=== PATIENT | male | born 1955 | race Caucasian/White ===

== ENCOUNTER 2017-08-15 10:53 | Observation (INO) ==
[2017-08-15] MEDS ORDERED: Isovue-370 500 ML INFUS..BTL IV ONE ×2 (10:55→13:37)
[2017-08-15] MEDS ORDERED: *HR* HYDROmorphone (PF) 1 MG/ML SYRINGE IVP ONE ×3 (10:57→18:41)
[2017-08-15] MEDS ORDERED: Ondansetron 4 MG/2 ML VIAL IVP ONE (10:57)
[2017-08-15] MEDS ORDERED: 0.9 % Sodium Chloride 1,000 ML IVC ONE (10:57)
--- NOTE | 2017-08-15 11:03 | Emergency Department Note ---
Disposition Clinical Impression: Inadequate pain control Rib fractures Qualifiers: Encounter type: initial encounter Rib fracture type: multiple ribs Fracture type: closed Laterality: right Qualified Code(s): S22.41XA - Multiple fractures of ribs, right side, initial encounter for closed fracture Disposition: Admitted As Inpatient Condition: Fair Time of Disposition: 12:44 Trauma HPI - General Chief Complaint: ED Trauma Stated Complaint: trampled by cattle Time Seen by Provider: 08/15/17 11:05 Source: patient Mode of arrival: wheelchair Limitations: physical limitation (due to pain) Nursing Notes Reviewed: Yes Vital Signs Reviewed: Yes - History of Present Illness HPI Narrative: 62-year-old male who is in the field when a dog that was in the field with him went one way triggered the visual contact with a cow that just calved became very aggressive and the cow chased him and then trampled him he comes in complaining of severe rib and chest pain and is unsure if he has any other injuries but states he was trampled by the bovine hurts to move but he denies any lightheadedness dizziness has a large abrasion to his leg denies any additional complaints Pt Subjective Complaint: other (Trampled) 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 Denies: confusion, cough, diaphoresis, fever, chills, headaches, loss of appetite, nausea, vomiting, seizure, abdominal pain, syncope, weakness, visual disturbances, dizziness, dental pain, epistaxis, back pain - Related Data Home Medications Medication Instructions Recorded Confirmed No Known Home Drugs 08/15/17 08/15/17 Allergies Allergy/AdvReac Type Severity Reaction Status Date / Time No Known Allergies Allergy Verified 08/15/17 10:54 All systems ED: reviewed and negative except as stated. Review of Systems: As Per HPI Constitutional: Denies: fever, chills, weakness Eyes: Denies: eye pain, eye discharge ENT ED: Denies: ear pain, throat pain Cardiovascular: Reports: chest pain, dyspnea on exertion. Denies: palpitations Respiratory: Reports: dyspnea. Denies: wheezes Gastrointestinal: Reports: abdominal pain (little). Denies: nausea, vomiting Genitourinary: Denies: urgency, dysuria, frequency Musculoskeletal: Reports: back pain. Denies: neck pain Integumentary: Denies: rash, nipple discharge Neurological: Denies: headache, weakness Psychiatric: Denies: anxiety, depression Endocrine: Denies: fatigue, heat or cold intolerance Hematological/Lymphatic: Denies: easy bleeding Allergic/Immunologic: Denies: facial swelling Past Medical History - Past Medical History Attestation: Yes The following information was validated with the patient. Source: patient, old records reviewed, nursing notes reviewed Physical Exam - General Limitations: physical limitation General appearance: alert, anxious, in distress - Head Head exam: normocephalic, normal inspection - Expanded Head Exam 1 - dried blood - Eye Eye exam: Present: normal appearance, PERRL, EOMI - ENT ENT exam: normal exam, normal oropharynx, mucous membranes moist, TM's normal bilaterally, normal external ear exam - Neck Neck exam: Present: normal inspection, full ROM, trachea midline. Absent: meningismus, other - Chest Chest inspection: Present: normal inspection, symmetric chest wall rise, tenderness (no bruising or crepitence) - Respiratory Respiratory exam: Present: normal lung sounds bilaterally, prolonged expiratory phase, other (splinting respirations) - Cardiovascular Cardiovascular exam: Present: regular rate, normal rhythm, normal heart sounds - Abdominal Exam Abdominal exam: Present: soft, Non-Tender, normal bowel sounds. Absent: mass, pulsatile mass - Expanded Upper Extremity Exam Shoulder exam: Present: normal inspection, full ROM Arm exam: Present: normal inspection, full ROM Elbow exam: Present: normal inspection, full ROM Forearm/Wrist exam: Present: normal inspection, full ROM Hand exam: Present: normal inspection, full ROM Vascular exam: Normal: capillary refill, radial pulse - Expanded Lower Extremity Exam Hip/Pelvis exam: Present: normal inspection, full ROM Upper leg exam: Present: normal inspection, full ROM 1 - large abrasion Knee exam: Present: normal inspection, full ROM, tenderness, abrasion Lower leg exam: Present: normal inspection, full ROM Ankle exam: Present: normal inspection, full ROM Foot/toe exam: Present: normal inspection, full ROM Neurovascular/Tendon exam: Present: normal capillary refill, normal fine/light touch. Absent: motor deficit, sensory deficit, tendon deficit Gait: observed and limited by pain - Back Exam Back exam: Present: normal inspection, full ROM, CVA tenderness (R), muscle spasm - Neurological Exam Neurological exam: Present: alert, oriented X3, CN II-XII intact - Psychiatric Psychiatric exam: Present: normal affect, normal mood - Skin Skin exam: Present: warm, dry, intact, normal color, other (covered in dirt on legs) Course Course Narrative: Patient was immediately seen and examined patient was given pain medication patient was taken directly to CAT scan where CT of the head chest abdomen and pelvis was done with IV contrast only was placed CAT scan he had multiple rib fractures on the right he did have initial relief with first dose of pain medications we tried giving him some oxycodone IR patient still continued to have pain though he was having no trouble with respirations or with movement as long as he was just very subtle in the bed with the try to get up and do any physical activity he would have increasing pain to the point where it almost incapacitating he was given a double dose of fentanyl at this time I spoke with Dr. Sullivan for admission patient was then transferred to [facility] for monitoring and pain control management patient was resting time of transfer to [facility] Vital Signs Temperature 97 F L 08/15/17 11:05 Pulse Rate 64 08/15/17 11:05 Respiratory Rate 18 08/15/17 11:05 Blood Pressure 129/75 08/15/17 11:05 O2 Sat by Pulse Oximetry 100 08/15/17 11:05 Temperature 98.3 F 08/16/17 14:07 Pulse Rate 79 08/16/17 14:07 Respiratory Rate 18 08/16/17 14:07 Blood Pressure 156/83 08/16/17 14:07 O2 Sat by Pulse Oximetry 96 08/16/17 14:07 Oxygen Delivery Oxygen Delivery Room Air Trauma - Differential Diagnosis Blunt Trauma to: Likely: Head/Face, Chest/Trunk, Abdomen/Pelvis - Medical Records Medical records reviewed: Yes I reviewed the patient's medical records. - Lab Data Lab results reviewed: Yes I reviewed the patient's lab results. Result diagrams: 08/16/17 06:00 08/16/17 06:00 Lab Results 08/15/17 08/15/17 08/15/17 Range/Units 11:00 11:00 11:00 WBC 10.0 (4.3-11.1) K/mcL RBC 5.06 (4.19-5.50) M/mcL Hgb 16.0 (12.9-16.9) g/dL Hct 45.0 (37.5-50.1) % MCV 88.9 (83.0-100.0) fL MCH 31.6 (28.0-33.3) pg MCHC 35.6 H (31.6-35.5) g/dL RDW 11.8 (11.5-14.5) % Plt Count 226 (140-400) K/mcL MPV 10.4 (9.4-12.4) fL Immature Gran % 0.6 (0-4) % Seg Neutrophils % 40.3 % Lymphocytes % 49.0 % Monocytes % 7.3 % Eosinophils % 2.3 % Basophils % 0.5 % Neutrophils # 4.1 (1.6-8.9) K/mcL Lymphocytes # 4.9 H (0.6-4.6) K/mcL Monocytes # 0.7 (0.0-1.3) K/mcL Eosinophils # 0.2 (0.0-0.6) K/mcL Basophils # 0.1 (0.0-0.2) K/mcL PT 10.7 (9.4-12.1) Seconds INR 1.0 APTT 25.0 L (26.0-36.0) Seconds Sodium 138 (136-145) mEq/L Potassium 3.7 (3.5-5.1) mEq/L Chloride 104 (98-107) mEq/L Carbon Dioxide 26 (23-29) mEq/L BUN 15 (8-23) mg/dL Creatinine 1.17 (0.70-1.30) mg/dL Est GFR ( Amer) > 60 (> 60) Est GFR (Non-Af Amer) > 60 (> 60) BUN/Creatinine Ratio 13 (6-26) Glucose 146 H (70-105) mg/dL Calculated Osmolality 289 (280-300) Calcium 8.9 (8.6-10.3) mg/dL Total Bilirubin 0.8 (0.3-1.0) mg/dL AST 149 H (13-39) Units/L ALT 149 H (7-52) Units/L Alkaline Phosphatase 73 (34-104) Units/L Serum Total Protein 6.9 (6.4-8.9) g/dL Albumin 4.0 (3.5-5.7) g/dL Globulin 2.9 (2.4-3.5) g/dL Albumin/Globulin Ratio 1.4 (1.1-2.2) - Radiology Data Radiology results reviewed: Yes I reviewed the patient's radiology results. Head chest or cranial bleed tumor mass or lesions noted chest pressure shows multiple rib fractures with a small apical adamant pneumonia. CT scan of the abdomen as read per radiology shows adrenal mass but no intra-abdominal fluid have reviewed and agree Critical Care Time Critical Care Time: No
[2017-08-15 11:09] LABS: Basophils # 0.1 K/mcL (0.0-0.2); Basophils % 0.5 %; Eosinophils # 0.2 K/mcL (0.0-0.6); Eosinophils % 2.3 %; Immature Granulocytes % 0.6 % (0-4); Lymphocytes # 4.9 K/mcL (0.6-4.6); Mean Corpuscular HGB Conc 35.6 g/dL (31.6-35.5); Mean Corpuscular Hemoglobin 31.6 pg (28.0-33.3); Mean Corpuscular Volume 88.9 fL (83.0-100.0); Mean Platelet Volume 10.4 fL (9.4-12.4); Monocytes # 0.7 K/mcL (0.0-1.3); Monocytes % 7.3 %; Neutrophils # 4.1 K/mcL (1.6-8.9); Platelet Count 226 K/mcL (140-400); Red Blood Count 5.06 M/mcL (4.19-5.50); Red Cell Distribution Width 11.8 % (11.5-14.5); Segmented Neutrophils % 40.3 %
[2017-08-15 11:20] LABS: Prothrombin Time 10.7 Seconds (9.4-12.1)
[2017-08-15 11:26] LABS: Alanine Aminotransferase 149 Units/L (7-52); Albumin/Globulin Ratio 1.4 (1.1-2.2); Alkaline Phosphatase 73 Units/L (34-104); Aspartate Amino Transferase 149 Units/L (13-39); BUN/Creatinine Ratio 13 (6-26); Bilirubin,Total 0.8 mg/dL (0.3-1.0); Blood Urea Nitrogen 15 mg/dL (8-23); Calcium 8.9 mg/dL (8.6-10.3); Carbon Dioxide 26 mEq/L (23-29); Chloride 104 mEq/L (98-107); Globulin 2.9 g/dL (2.4-3.5); Glucose 146 mg/dL (70-105); Osmolality,Calculated 289 (280-300); Potassium 3.7 mEq/L (3.5-5.1); Sodium 138 mEq/L (136-145); Total Protein 6.9 g/dL (6.4-8.9); eGFR For African Americans > 60 (> 60); eGFR For Non-African Americans > 60 (> 60)
[2017-08-15] MEDS ORDERED: Td (TENIVAC) Vaccine 0.5 ML VIAL IM ONE (12:22)
[2017-08-15] MEDS: *HR* OxyCODONE Immed Rel 5 MG TABLET PO ONE ×2 (12:28→14:24)
[2017-08-15] MEDS ORDERED: *HR* FentaNYL (PF) 100 MCG/2 ML VIAL IVP ONE (13:13)
[2017-08-15] MEDS ORDERED: Naloxone 0.4 MG/ML INJ IVP PRN (13:37)
[2017-08-15] MEDS ORDERED: *HR* FentaNYL PATCH 25 MCG PATCH TD SCH (14:00)
[2017-08-15] MEDS ORDERED: *HR* OxyCODONE/APAP 10/325 TABLET PO STA (14:04)
[2017-08-15] MEDS ORDERED: MOM Conc 10 ML UD.LIQ PO SCH (17:00)
--- NOTE | 2017-08-15 17:04 | Internal Med History&Physical ---
Date of Encounter: 08/15/17 Time of Encounter: 16:30 Assessment and Plan (1) Rib fractures Current visit: Yes Status: Acute He will be given scheduled and prn analgesics. Qualifiers: Encounter type: initial encounter Rib fracture type: multiple ribs Fracture type: closed Laterality: right Qualified Code(s): S22.41XA - Multiple fractures of ribs, right side, initial encounter for closed fracture (2) Pneumothorax Current visit: Yes Status: Acute Chest CT showed 3.9 mm right apical pneumothorax. Will check chest x-ray in a.m. Qualifiers: Pneumothorax type: traumatic Encounter type: initial encounter Qualified Code(s): S27.0XXA - Traumatic pneumothorax, initial encounter (3) Adrenal mass, right Current visit: Yes Status: Acute CT scan showed right adrenal gland masslike enlargement measuring 3.6 x 1.8 cm. Etiology was indeterminate. Follow-up exam can be done in 2-4 weeks to reevaluate. (4) Elevated LFTs Current visit: Yes Status: Acute Suspect secondary to fatty liver infiltration. His PCP can monitor and treat as needed. Internal Medicine - H&P: HPI Chief complaint: Rib Fractures Admitted From: Emergency Dept Plans for Post Hospital Care: Home History of present illness: Mr. Alan is a 62 year old male who came to emergency room after a cow knocked him over and [place] on [place] He denies loss of consciousness or head trauma. He sustained multiple right rib fractures as well as other contusions and lacerations. He was admitted to [facility] floor for ongoing care needs. His musculoskeletal history is significant for previous fractured fingers remotely. He denies other bone joint or muscle disorders. Past Med Surg Social Fam HX - Past Medical History Medical history: no medical history Psychiatric history: no psych history - Social History Smoking Status: Never smoker Smokeless Tobacco Status: No Alcohol use: none Drug use: none Internal Medicine - H&P: Meds No Known Home Drugs 08/15/17 [History] 3 Allergy/AdvReac Type Severity Reaction Status Date / Time No Known Allergies Allergy Verified 08/15/17 10:54 All Systems PM: A 10-system review of systems was performed and is negative for pertinent findings except as documented above in the HPI. Review of systems: Gen.: He states his weight has been stable the past few months Cardiovascular: He denies [place] hypertension heart failure angina DVT or pulmonary embolus Respiratory: He is a lifelong nonsmoker and has no known chronic lung disease GI: He had slight elevation of LFTs in emergency room. CT scan of the abdomen showed fatty infiltration of the liver. He has had numerous colon polyps with polypectomies. : He denies hematuria dysuria or kidney stones. He had a prostate biopsy several years ago which was unremarkable. Neurologic: He denies large distribution strokes or seizures. Endocrine: Denies diabetes thyroid disease or hyperlipidemia Hematology/oncology: Denies blood disorders cancers or anemia Psychiatric: He denies anxiety depression or other mental health issues Muscle skeletal: As per history of present illness - Constitutional Vitals: Temp Pulse Resp BP Pulse Ox 97 F L 68 17 156/68 93 08/15/17 11:05 08/15/17 14:36 08/15/17 14:36 08/15/17 14:36 08/15/17 14:36 Exam: Gen.: He is a well-developed well-nourished male who appears in no acute distress at present time HEENT: Head is atraumatic and normocephalic. Eyes: EOMI. There is no scleral icterus. Mouth: Mucosa is moist. Neck: Supple and nontender. There is no thyromegaly or adenopathy noted. Heart: Regular without murmurs gallops or ectopics Lungs: No wheezes or crackles are heard. Abdomen: Soft and nontender. No masses or guarding are noted. Extremities: There is no cyanosis edema or clubbing noted. Dorsalis pedis and posttibial pulses are 1-2 over 2 bilaterally. Neurologic: Mental status: He is talkative and a good historian. Cranial nerves : Smile is symmetric. Forehead wrinkles bilaterally. Tongue protrudes midline. EOMI. Motor: There is no pronator drift. Cerebellar: Finger to nose is intact bilaterally. Skin: Warm and dry. He has an abrasion to his right anterior mid tibial area approximately 7-8 cm in length. He has an ecchymoses in his left anterior medial lower anterior gonzales area measuring approximately 6 mm diameter. Internal Med - H&P Results - Labs CBC & Chem 7: 08/15/17 11:00 08/15/17 11:00
[2017-08-15] MEDS: *HR* OxyCODONE Immed Rel 5 MG TABLET PO PRN (18:25)
[2017-08-15] MEDS: *HR* OxyCODONE/APAP 10/325 TABLET PO SCH ×2 (19:28→20:50)
[2017-08-15 19:56] LABS: Bilirubin,Urine Small (Negative); Blood,Urine Trace-intact (Negative); Clarity,Urine Clear (Clear); Color,Urine Yellow (Yellow); Glucose,Urine (UA) Normal (Normal); Ketones,Urine 15 mg/dL (Negative); Leukocyte Esterase,Urine Negative (Negative); Nitrite,Urine Negative (Negative); PH,Urine 5.5 pH Units (5.0-8.0); Protein,Urine 30 mg/dL (Neg-Trace); Specific Gravity,Urine >= 1.030 (1.010-1.025); Urobilinogen,Urine Normal (Normal)
[2017-08-15] MEDS: Ondansetron 4 MG/2 ML VIAL IVP PRN (19:57)
[2017-08-15 20:12] LABS: Bacteria,Urine Moderate per hpf (None-Few); Mucus,Urine Moderate (Few); RBC,Urine 0-3 per hpf (0-3); Squamous Epithelial Cell,Urine Few per lpf (None-Few); WBC,Urine 0-3 per hpf (0-3)
[2017-08-16] MEDS: *HR* OxyCODONE Immed Rel 5 MG TABLET PO PRN ×2 (00:41→07:48)
[2017-08-16] MEDS: Ondansetron 4 MG/2 ML VIAL IVP PRN ×2 (00:41→07:48)
[2017-08-16 06:26] LABS: Basophils % 0.2 %; Eosinophils % 0.1 %; Hemoglobin 15.2 g/dL (12.9-16.9); Immature Granulocytes % 0.6 % (0-4); Lymphocytes # 2.3 K/mcL (0.6-4.6); Lymphocytes % 11.4 %; Mean Corpuscular HGB Conc 35.3 g/dL (31.6-35.5); Mean Corpuscular Hemoglobin 31.9 pg (28.0-33.3); Mean Corpuscular Volume 90.3 fL (83.0-100.0); Mean Platelet Volume 10.6 fL (9.4-12.4); Monocytes # 1.6 K/mcL (0.0-1.3); Monocytes % 7.9 %; Platelet Count 182 K/mcL (140-400); Red Blood Count 4.76 M/mcL (4.19-5.50); Segmented Neutrophils % 79.8 %
[2017-08-16 06:33] LABS: Neutrophils # 15.8 K/mcL (1.6-8.9)
[2017-08-16 07:10] LABS: BUN/Creatinine Ratio 16 (6-26); Blood Urea Nitrogen 14 mg/dL (8-23); Calcium 8.5 mg/dL (8.6-10.3); Carbon Dioxide 25 mEq/L (23-29); Chloride 100 mEq/L (98-107); Glucose 136 mg/dL (70-105); Osmolality,Calculated 281 (280-300); Sodium 134 mEq/L (136-145); eGFR For African Americans > 60 (> 60); eGFR For Non-African Americans > 60 (> 60)
[2017-08-16 13:09] LABS: Bilirubin,Urine Negative (Negative); Blood,Urine Trace-intact (Negative); Clarity,Urine Clear (Clear); Color,Urine Yellow (Yellow); Glucose,Urine (UA) Normal (Normal); Ketones,Urine Trace mg/dL (Negative); Leukocyte Esterase,Urine Negative (Negative); Nitrite,Urine Negative (Negative); PH,Urine 5.5 pH Units (5.0-8.0); Protein,Urine 30 mg/dL (Neg-Trace); Specific Gravity,Urine >= 1.030 (1.010-1.025); Urobilinogen,Urine Normal (Normal)
[2017-08-16 13:21] LABS: Bacteria,Urine Few per hpf (None-Few); Mucus,Urine Few (Few); RBC,Urine 0-3 per hpf (0-3); Squamous Epithelial Cell,Urine Few per lpf (None-Few); WBC,Urine 0-3 per hpf (0-3)
--- NOTE | 2017-08-16 14:06 | Internal Med Progress Note ---
Date of Encounter: 08/16/17 Time of Encounter: 13:55 - Assessment and plan (1) Rib fractures Current Visit: Yes Status: Acute Assessment and plan: August 16. Continue scheduled and prn analgesics. Qualifiers: Encounter type: initial encounter Rib fracture type: multiple ribs Fracture type: closed Laterality: right Qualified Code(s): S22.41XA - Multiple fractures of ribs, right side, initial encounter for closed fracture (2) Pneumothorax Current Visit: Yes Status: Acute Assessment and plan: August 16. Dr. Naranjo reviewed the CT scan and did not feel intervention was required at this time. We will continue to monitor. Qualifiers: Pneumothorax type: traumatic Encounter type: initial encounter Qualified Code(s): S27.0XXA - Traumatic pneumothorax, initial encounter (3) Adrenal mass, right Current Visit: Yes Status: Acute Assessment and plan: August 16. CT scan today showed unchanged right adrenal gland masslike enlargement. Will repeat CT scan in 2-4 weeks to reevaluate. (4) Elevated LFTs Current Visit: Yes Status: Acute Assessment and plan: August 16. Suspect secondary to NAFLD. (5) Abdominal distention Current Visit: Yes Status: Acute Assessment and plan: August 16. I discussed with him Dr. Naranjo's concern about possible injury to the bowel causing distention but he is having no worsening of his distention. He agreed it was reasonable to stay at [facility] for now and continue monitoring without proceeding with transfer to [facility] etc. - Subjective Interval history: August 16. He complained of some abdominal bloating without pain this morning. He had 1-2 episodes of vomiting after taking Percocet. He has not passed gas. He denies any worsening of his rib pain or worsening dyspnea. - Constitutional Vitals: Temp Pulse Resp BP Pulse Ox 98.1 F 86 19 153/81 95 08/16/17 10:38 08/16/17 10:38 08/16/17 10:38 08/16/17 10:38 08/16/17 10:38 Exam: He is lying in bed and appears in minimal distress. His affect is cheerful. I reviewed his medications. I discussed pertinent lab results with him. I spoke with Dr. Naranjo at [facility] about the abdominal CT report showing worsening right hemopneumothorax. Internal Medicine: Result - Labs CBC & Chem 7: 08/16/17 06:00 08/16/17 06:00 Labs: Short CBC 08/16/17 Range/Units 06:00 WBC 19.8 H D (4.3-11.1) K/mcL Hgb 15.2 (12.9-16.9) g/dL Hct 43.0 (37.5-50.1) % Plt Count 182 (140-400) K/mcL Neutrophils # 15.8 H (1.6-8.9) K/mcL BMP 08/16/17 06:00 Sodium 134 L Potassium 4.0 Chloride 100 Carbon Dioxide 25 BUN 14 Creatinine 0.88 Glucose 136 H Calcium 8.5 L Urine 08/15/17 08/16/17 Range/Units 19:58 13:05 Urine Color Yellow Yellow (Yellow) Urine Clarity Clear Clear (Clear) Urine pH 5.5 5.5 (5.0-8.0) pH Units Ur Specific Plover >= 1.030 H >= 1.030 H (1.010-1.025) Urine Protein 30 H 30 H (Neg-Trace) mg/dL Urine Glucose (UA) Normal Normal (Normal) mg/dL - ABG Interpretation ABG results: PT/INR, D-dimer PT 10.7 Seconds (9.4-12.1) 08/15/17 11:00 - Impressions Impressions Chest X-Ray 08/16/17 08:00 IMPRESSION: Increasing volume loss in the right lung base in a patient with recently described right rib fractures. Small right apical pneumothorax. D/ / 08/16/2017 09:00:24 Tejas Matt MD / [facility] Interpreting Provider: Tejas Matt MD Abdomen/Pelvis CT 08/16/17 08:22 IMPRESSION: Right hydropneumothorax, with increasing pleural gas and pleural fluid as compared to prior exam dated 08/15/2017. Increasing small left pleural effusion. Bibasilar atelectasis. Small amount of free pelvic fluid, slightly greater than prior. Persistent injection of mesenteric fat of the root of the small bowel mesentery. Mild increased inflammatory stranding about the duodenum and kidneys. Posttraumatic etiology should be considered given the clinical history. High density masslike enlargement is again seen at the right adrenal gland which can reflect adrenal hemorrhage given patient history and/or underlying right renal mass. Continued clinical follow-up is suggested. Fatty liver. Multiple right rib fractures and mild anterior wedging at L3, as previously described. Findings suggestive of gastroesophageal reflux. Results were called by the radiology call center. D/ / Freddie Valerio MD / Freddie Valerio MD Interpreting Provider: Freddie Valerio MD Consult Discharge Plan - Plan Referrals: Rene Archer MD [Primary Care Provider] - 1 week
[2017-08-16 14:10] VITALS: BP 156/83
[2017-08-16] MEDS ORDERED: *HR* Promethazine 25 MG/ML VIAL IVP ONE (14:27)
[2017-08-16] MEDS ORDERED: *HR* HYDROmorphone (PF) 1 MG/ML SYRINGE IVP ONE (14:28)
[2017-08-16] MEDS ORDERED: 0.9 % Sodium Chloride 1,000 ML IVC SCH (14:30)
--- NOTE | 2017-08-16 14:33 | Discharge Summary ---
Date of Encounter: 08/16/17 Time of Encounter: 14:20 - Discharge Diagnosis (1) Rib fractures Priority: Primary Status: Acute Qualifiers: Encounter type: initial encounter Rib fracture type: multiple ribs Fracture type: closed Laterality: right Qualified Code(s): S22.41XA - Multiple fractures of ribs, right side, initial encounter for closed fracture (2) Pneumothorax Priority: Secondary Status: Acute Qualifiers: Pneumothorax type: traumatic Encounter type: initial encounter Qualified Code(s): S27.0XXA - Traumatic pneumothorax, initial encounter (3) Adrenal mass, right Priority: Secondary Status: Acute (4) Elevated LFTs Priority: Secondary Status: Acute (5) Abdominal distention Priority: Secondary Status: Acute Hospital course: Mr. Alan is a 62 year old male who came to emergency room after a cow knocked him over and [place]. He denies loss of consciousness or head trauma. He sustained multiple right rib fractures as well as other contusions and lacerations. He was admitted to [facility] for ongoing care needs. Initial orders were written by the emergency room physician. I saw him the afternoon of August 15 and performed the history and physical. He was given scheduled and prn analgesics. Repeat chest x-ray done the morning of August 16 showed atelectasis in the right base but no significant worsening of the apical pneumothorax. He complained of abdominal distention so a repeat abdominal CT was done. There was increased hemopneumothorax seen in the right lung. There was unchanged contour in the right adrenal gland. I spoke with Dr. Naranjo at [facility] about the hemopneumothorax. Dr. Naranjo did not think chest tube was needed at this time. He did suggest discussion with patient about transfer to [facility] for further evaluation for abdominal trauma. I spoke with patient and family and after deliberation they agreed to be transferred to [facility] for ongoing care needs. - Time Spent with Patient Total time spent providing and/or coordinating discharge services: - Discharge Medications Home Medications: No Known Home Drugs 08/15/17 [History] Allergies/Adverse Reactions: 3 Allergy/AdvReac Type Severity Reaction Status Date / Time No Known Allergies Allergy Verified 08/15/17 10:54 Date of admission: 08/15/17 12:59 Primary care physician: Rene Archer MD - Constitutional Vitals: Temp Pulse Resp BP Pulse Ox 98.3 F 79 18 156/83 96 08/16/17 14:07 08/16/17 14:07 08/16/17 14:07 08/16/17 14:07 08/16/17 14:07 - Patient Status Disposition: Transfer Other Condition: Fair - Discharge Instructions
== END 2017-08-16 15:27 | disposition short-term general hospital (02) ==
LOC: EMEROOPIK 10:53 → INPPIK 10:53
PROVIDERS: ADMIT Internal Medicine; ATTEND Internal Medicine